=== PATIENT | male | born 1985 | race Caucasian/White ===

== ENCOUNTER 2017-09-19 20:56 | Emergency (ER) | payer OTHER ==
[~2017-09-19] VITALS: Ht 180.3 cm; Wt 80.0 kg
[2017-09-19 21:06] VITALS: TEMP 37.1; Ht 180.3 cm; Wt 80.0 kg
[2017-09-19] MEDS ORDERED: LIDO/EPINEPHRINE/SOD BICARB 20 ML VIAL ONE (21:14)
[2017-09-19] MEDS ORDERED: LIDOCAINE/EPINEPHRINE 1% 20 ML VIAL INFIL ONE (21:30)
--- NOTE | 2017-09-19 21:48 | DIAGNOSTIC IMAGING REPORT ---
L HAND MIN 3 VIEWS ROUTINE CLINICAL HISTORY: laceration over left 4th MCP joint, eval fx, FB trauma COMPARISON: None. DISCUSSION: The bones and joint spaces appear intact. There is no evidence of fracture, dislocation or bony disease. Mild soft tissue edema at the fourth metacarpal carpal junction IMPRESSION: No acute bony abnormality. Mild localized soft tissue edema. The above report was generated using voice recognition software. It may contain grammatical, syntax or spelling errors. Electronically signed by: Dileep Worrell M.D. 09/19/2017 9:47 PM Dictated Date/Time: 09/19/2017 9:46 PM
--- NOTE | 2017-09-19 22:15 | EMERGENCY ROOM VISIT NOTE ---
ED Visit Note First contact with patient: 21:11 CHIEF COMPLAINT: Hand laceration HISTORY OF PRESENT ILLNESS: This 31-year-old male patient presents to the emergency department by private vehicle after cutting the left hand with a loader magazine grinder. He states that it slipped and went through his glove into the top of his hand. The bleeding has stopped. Denies weakness or numbness of the hand or fingers. The patient rates the pain as aching and 2/10. The patient denies any other injuries. The patient's Tetanus shot is up to date. He is right hand dominant. REVIEW OF SYSTEMS: A 6 system review of systems was completed with positives and pertinent negatives listed in the HPI. ALLERGIES: No known allergies MEDICATIONS: No medications PMH: No significant past medical or surgical history. SOCIAL HISTORY: Lives at home. Denies tobacco use. PHYSICAL EXAM: Vital Signs: Reviewed Nurse's notes, vital signs stable. GENERAL : Pleasant and cooperative, in no acute distress, well-developed, well- nourished. SKIN: There is a 1.5 cm long laceration on the dorsal aspect of the left hand just proximal to the fourth MCP joint. The edges gape apart with traction. There is no foreign material in the wound and it looks clean. There is no active bleeding. There is exposed bone within the base of the wound, no damage to tendons or blood vessels seen. Flexion and extension of the finger is full strength intact. Normal strength and movement of all other fingers and wrist. Capillary refill less than 2 seconds. Normal sensation to light and sharp touch. IMAGING: L HAND MIN 3 VIEWS ROUTINE CLINICAL HISTORY: laceration over left 4th MCP joint, eval fx, FB trauma COMPARISON: None. DISCUSSION: The bones and joint spaces appear intact. There is no evidence of fracture, dislocation or bony disease. Mild soft tissue edema at the fourth metacarpal carpal junction IMPRESSION: No acute bony abnormality. Mild localized soft tissue edema. EMERGENCY DEPARTMENT COURSE: I examined the patient. Differential diagnosis includes laceration, tendon laceration, open fracture, retained foreign body, among others. An x-ray of the left hand was performed, there is no evidence of retained foreign body or fracture. Verbal consent was obtained to perform the procedure. Using sterile technique the wound was cleansed with Betadine. The area was sterilely draped. 2 ml of 1% buffered lidocaine with epinephrine was used to anesthetize the laceration on the hand. Once the patient was anesthetized, the wound was copiously irrigated under pressure with sterile saline. The wound was explored and was as described above. The laceration was repaired using 3 simple interrupted 5-0 nylon sutures with the wound edges being well approximated. The patient tolerated the procedure well. Hemostasis was achieved. The area was cleaned with sterile saline and dressed with bacitracin ointment and bandage. Patient was educated regarding wound care, follow-up, and return precautions, he verbalized understanding. The patient was discharged home in good condition. Current/Historical Medications Scheduled Cephalexin Monohydrate (Keflex), 500 MG PO QID Allergies Coded Allergies: No Known Allergies (Unverified , 09/20/10) Vital Signs Date Time Temp Pulse Resp B/P (MAP) Pulse Ox O2 Delivery O2 Flow Rate FiO2 09/19/17 22:53 80 16 135/69 99 09/19/17 21:06 37.1 85 16 149/85 99 Room Air Medications Administered Medications (Trade) Dose Ordered Sig/Mary Lou Route Start Time Stop Time Status Last Admin Dose Admin Cephalexin Monohydrate (Keflex Cap) 500 mg NOW ONCE PO 09/19/17 22:45 09/19/17 22:46 DC 09/19/17 22:41 500 MG Departure Information Impression Primary Impression: Laceration of left hand Dispostion Home / Self-Care Condition GOOD Prescriptions Cephalexin Monohydrate (KEFLEX) 500 Mg Cap 500 MG PO QID for 5 Days, #20 CAP Prov: Loretta Thrasher CRNP 09/19/17 Referrals No Doctor, Assigned (PCP) Kumar Richardson MD Patient Instructions ED Laceration Hand, [facility] Additional Instructions You have been evaluated and treated in the emergency department for your left hand laceration. You have received 3 sutures to your left hand. You will need to have the sutures removed in 10 days. You were prescribed Keflex to be taken to 4 times a day for 5 days. This is an antibiotic to help prevent infection. All antibiotics have the potential to cause diarrhea, you can help prevent this by eating yogurt every day or taking a daily probiotic. Stop this medication and contact a medical provider if you were to develop any significant adverse side effects including: wheezing, shortness of breath, passing out, vomiting, or a diffuse rash. Always take antibiotics as directed and COMPLETE the ENTIRE course regardless of the improvement of your symptoms. You have been provided with contact information for a hand surgeon, Dr. Richardson. Please call his office to schedule a follow-up appointment in the next few days. Keep the wound clean and dry. Do not allow any crusting or dried blood to accumulate on sutures. If this occurs, use a 1:1 solution of hydrogen peroxide/ water on a Q-tip to clean the wound. Do not submerge the wound under water until the sutures have been removed. Use an antibiotic ointment for 3-4 days, then let wound dry. Keep covered with a Band-Aid. Ice and elevate to help reduce swelling and pain. Ibuprofen 600 mg and Tylenol 1000 mg every 6-8 hours as needed for pain. As with all lacerations, there may be temporary or permanent nerve damage or scarring. Keep covered when in sun until sutures removed then SPF 50 or higher for one year. Vitamin E oil if desired two weeks after suture removal for reduction of scar. Please seek immediate medical attention for any signs of infection (increasing redness, swelling, pus drainage, streaking up the arm, fever/chills). Problem Qualifiers Primary Impression: Laceration of left hand Encounter type: initial encounter Foreign body presence: without foreign body Qualified Codes: S61.412A - Laceration without foreign body of left hand , initial encounter
[2017-09-19] MEDS ORDERED: CEPH500C2 PO (22:37)
[2017-09-19] MEDS ORDERED: CEPHALEXIN MONOHYDRATE 250 MG CAP PO ONE (22:45)
[2017-09-19 22:53] VITALS: BP 135/69; PULSE 80; O2SAT 99
== END 2017-09-19 22:54 | disposition home or self-care (01) ==
LOC: C.EDB 20:57 → C.EDA 22:54